=== PATIENT | female | born 1985 | race Caucasian/White ===

== ENCOUNTER → 2018-11-09 | Outpatient (CLI) | payer OTHER ==
--- NOTE | 2018-11-10 07:25 | US ---
EXAMINATION TYPE: US pelvic complete DATE OF EXAM: 11/09/2018 COMPARISON: NONE CLINICAL HISTORY: N93.0 Post coidal bleeding. TECHNIQUE: . Transabdominal sonographic images of the pelvis were acquired. Date of LMP: 10/14/2018 EXAM MEASUREMENTS: Uterus: 10.2 x 4.9 x 6.3 cm Endometrial Stripe: 1.0 cm Right Ovary: 2.7 x 1.9 x 1.5 cm Left Ovary: 1.6 x 1.5 x 1.0 cm 1. Uterus: Anteverted wnl 2. Endometrium: wnl 3. Right Ovary: wnl 4. Left Ovary: wnl 5. Bilateral Adnexa: wnl 6. Posterior cul-de-sac: Tiny amount of free fluid visualized Heterogeneous anteverted uterus is seen. Endometrium measures 10 mm which is of within normal limits for secretory phase of menstrual cycle. Tiny amount of free fluid in pelvic cul-de-sac is presumed ph ysiologic. Both ovaries are identified. No suspicious adnexal masses are seen. IMPRESSION: No suspicious finding is seen to account for patient's symptoms.
== END ==
LOC: RADUSWWP 16:10
PROVIDERS: ATTEND Obstetrics & Gynecology
DX: N93.0 Postcoital and contact bleeding (principal)
CPT/HCPCS: 76856

== ENCOUNTER 2020-05-30 06:00 | Inpatient (IN) | payer OTHER ==
--- NOTE | 2020-05-29 20:04 | P.HPOB ---
History of Present Illness H&P Date: 05/29/20 Chief Complaint: Induction of labor This is a 35 y.o. female, 5, para 3, with an estimated date of confinement of 06/02/2020, estimated gestational age of 39-4/7 weeks who presents for induction of labor. She admits to good movement and has irregular contractions. course has been uncomplicated. OB Hx: . History of 3 previous vaginal deliveries and 1 miscarriage. Sap Basis Consultant Hx: No hx of STDs Social Hx: . Works as RN. labs: GC/Chlamydia/Trich-neg Hepatitis B surface antigen-neg RPR-NR Rubella-immune Blood type-O+ Antibody screen-neg Hemoglobin-13.6 Random glucose-85 1 hr. GTT-119 GBS-neg Review of Systems Constitutional: Denies chills, Denies fever Eyes: denies blurred vision, denies pain Ears, nose, mouth and throat: Denies headache, Denies sore throat Cardiovascular: Denies chest pain, Denies shortness of breath Respiratory: Denies cough Gastrointestinal: Reports abdominal pain (occ ctxs) Genitourinary: Reports pelvic pain, Reports Integumentary: Denies pruritus, Denies rash Neurological: Denies numbness, Denies weakness Psychiatric: Denies anxiety, Denies depression Past Medical History Past Medical History: Asthma History of Any Multi-Drug Resistant Organisms: None Reported Past Surgical History: Breast Surgery Additional Past Surgical History / Comment(s): breast biopsy 2011. leep 2011. D&C 2011. wisdom teeth Past Anesthesia/Blood Transfusion Reactions: No Reported Reaction Past Psychological History: No Psychological Hx Reported Past Alcohol Use History: None Reported Past Drug Use History: None Reported - Past Family History Mother Family Medical History: Hypertension Medications and Allergies Home Medications Medication Instructions Recorded Confirmed Type Pnv,Calcium 72/Iron/Folic Acid 1 each PO DAILY 02/04/16 02/04/16 History [ Plus Tablet] Allergies Allergy/AdvReac Type Severity Reaction Status Date / Time Penicillins Allergy Intermediate Rash/Hives Verified 02/04/16 06:17 Exam Osteopathic Statement: *. No significant issues noted on an osteopathic structural exam other than those noted in the History and Physical/Consult. HEENT: Within normal limits Heart: regular rate and rhythm Lungs: clear to auscultation bilaterally Abdomen: Cervix: 2.5 cm/60%/-3 heart tones: 130'v by doppler Extremities: neg. Obed's Assessment and Plan (1) 39 weeks gestation of Status: Acute Code(s): Z3A.39 - 39 WEEKS GESTATION OF SNOMED Code(s): 99409832 Plan: Proceed with oxytocin induction of labor. Expectant management. Epidural anesthesia if desired.
[2020-05-30] MEDS ORDERED: LIDOCAINE 0.5% (PF) 5 MG/ML (50 ML SDV) SQ PRN (06:56)
[2020-05-30] MEDS ORDERED: TERBUTALINE 1 MG/ML VIAL SQ PRN (06:56)
[2020-05-30] MEDS ORDERED: CARBOPROST TROMETHAMINE 250 MCG/ML 1 ML AMP IM PRN (06:56)
[2020-05-30] MEDS ORDERED: LIDOCAINE 1% (10MG/ML) FOR IV START INTRADERMA PRN (06:56)
[2020-05-30] MEDS ORDERED: OXYTOCIN 30 UNITS/500 ML NS 30 UNIT in SALINE 1 500ML.BAG IV SCH (06:56)
[2020-05-30] MEDS ORDERED: OXYTOCIN 10 UNIT/ML 1 ML VIAL IM PRN (06:56)
[2020-05-30] MEDS ORDERED: METHYLERGONOVINE 0.2 MG/ML 1 ML AMP IM PRN (06:56)
[2020-05-30] MEDS: LACTATED RINGERS 1,000 ML IV SCH ×2 (07:00→12:30)
[2020-05-30 07:02] LABS: Basophils # (A) 0.1 k/uL (0-0.2); Basophils % (A) 1 %; Eosinophils # (A) 0.1 k/uL (0-0.7); Eosinophils % (A) 1 %; HCT 34.7 % (34.0-46.0); HGB 11.3 gm/dL (11.4-16.0); Hypochromasia Slight; Lymphocytes # (A) 1.9 k/uL (1.0-4.8); Lymphocytes % (A) 24 %; MCH 27.4 pg (25.0-35.0); MCHC 32.7 g/dL (31.0-37.0); MCV 83.9 fL (80.0-100.0); Mean Platelet Volume 9.5; Monocytes # (A) 0.4 k/uL (0-1.0); Monocytes % (A) 5 %; Neutrophils # (A) 5.4 k/uL (1.3-7.7); Neutrophils % (A) 67 %; Platelet Count 151 k/uL (150-450); RBC 4.14 m/uL (3.80-5.40)
[2020-05-30] MEDS ORDERED: SODIUM CHLORIDE 0.9% 100 ML BAG ONE (12:15)
[2020-05-30] MEDS ORDERED: ROPIVACAINE 5MG/ML 20ML VIAL ONE (12:15)
[2020-05-30] MEDS ORDERED: fentaNYL (PF) 50 MCG/ML 5 ML AMP ONE (12:15)
[2020-05-30] MEDS ORDERED: ROPIVACAINE 100 MG, fentaNYL (PF) 200 MCG in SODIUM CHLORIDE 0.9% 76 ML EPIDURAL ONE (12:45)
[2020-05-30] MEDS ORDERED: BENZOCAINE/MENTHOL SPRAY 1 GM/SPRAY AEROSOL TOPICAL PRN (14:17)
[2020-05-30] MEDS ORDERED: diphenhydrAMINE 50 MG/ML 1 ML VIAL IVP PRN ×2 (14:17)
[2020-05-30] MEDS ORDERED: LANOLIN CREAM 5 GM TUBE TOPICAL PRN (14:17)
[2020-05-30] MEDS ORDERED: diphenhydrAMINE 50 MG CAP PO PRN (14:17)
[2020-05-30] MEDS ORDERED: SIMETHICONE 80 MG CHEWABLE PO PRN (14:17)
[2020-05-30] MEDS ORDERED: IBUPROFEN 600 MG TAB PO PRN (14:17)
[2020-05-30] MEDS ORDERED: ZOLPIDEM 5 MG TAB PO PRN (14:17)
[2020-05-30] MEDS ORDERED: OXYTOCIN 20 UNITS/1000 ML NS 1,000 ML IV SCH (14:17)
[2020-05-30] MEDS ORDERED: HYDROCORTISONE 2.5% RECTAL CREAM 30 GM TUBE RECTAL PRN (14:17)
[2020-05-30] MEDS ORDERED: diphenhydrAMINE 25 MG CAP PO PRN (14:17)
[2020-05-30] MEDS ORDERED: ACETAMINOPHEN TAB 325 MG TAB PO PRN (14:17)
--- NOTE | 2020-05-30 19:36 | P.PROBDLV ---
Vaginal Delivery Note - . Vaginal Delivery Note: The patient progressed to complete dilation after oxytocin induction of labor and artificial rupture membranes with clear fluid noted. She did receive epidural anesthesia. Shortly after epidural, she was checked and found to be rim. She began pushing. Infant's head came to a crown. With one further push, the 's head delivered across the perineum followed by the anterior shoulder. Nuchal cord times one was reduced around the body with delivery. Infant was placed on mother's abdomen and cord was clamped and cut. A viable female infant was noted with scores of 9 at 1 minute and 9 at 5 minutes and infant weight of 7 lbs. 12 oz. Placenta delivered shortly thereafter, intact, with a three-vessel cord. Uterus contracted well after oxytocin was given and uterine massage was carried out. Inspection of the perineum revealed no perineal lacerations. Estimated blood loss is approximately 100 mL's. Both mother and are in stable condition.
[2020-05-30] MEDS: SENNOSIDES-DOCUSATE SODIUM 1 EACH TAB PO SCH (19:42)
[2020-05-31 06:37] LABS: Basophils # (A) 0.1 k/uL (0-0.2); Basophils % (A) 1 %; Eosinophils # (A) 0.1 k/uL (0-0.7); Eosinophils % (A) 1 %; HGB 9.9 gm/dL (11.4-16.0); Hypochromasia Slight; Lymphocytes # (A) 2.2 k/uL (1.0-4.8); Lymphocytes % (A) 26 %; MCH 26.9 pg (25.0-35.0); MCV 84.2 fL (80.0-100.0); Mean Platelet Volume 9.6; Monocytes # (A) 0.6 k/uL (0-1.0); Monocytes % (A) 8 %; Neutrophils # (A) 5.4 k/uL (1.3-7.7); Neutrophils % (A) 63 %; Platelet Count 147 k/uL (150-450); RBC 3.68 m/uL (3.80-5.40); RDW 15.9 % (11.5-15.5); WBC 8.5 k/uL (3.8-10.6)
--- NOTE | 2020-05-31 08:49 | P.DS ---
Providers Date of admission: 05/30/20 06:12 Expected date of discharge: 05/31/20 Attending physician: Iqra Guo Primary care physician: Stated None - Discharge Diagnosis(es) (1) 39 weeks gestation of Current Visit: No Status: Acute Hospital Course: This is a 35-year-old female 5 para 3 at 39-4/7 weeks who presented for induction of labor. She underwent oxytocin induction of labor and delivered vaginally a viable female with scores of 9 at 1 minute and 9 at 5 minutes and weight of 7 lbs. 12 oz. on 05/30/2020. course has been uncomplicated. Lochia is decreasing. She is bottle feeding. Pain is well-controlled. Vital signs are stable. Abdomen is soft with fundus firm and nontender. Extremities show negative Homans. Impression is status post vaginal delivery day #1. Plan is to discharge home today. Routine instructions are given. She declines the need for any pain medication. She is advised follow-up in the office in 6 weeks for check. She is advised call the office if she has any further questions or concerns prior to her appointment time. Procedures: Oxytocin induction of labor Spontaneous vaginal delivery of a viable female on 05/30/2020. Patient Condition at Discharge: Stable Plan - Discharge Summary New Discharge Prescriptions: Continue Pnv,Calcium 72/Iron/Folic Acid [ Plus Tablet] 1 each PO DAILY Ferrous Sulfate [Slow Fe] 142 mg PO DAILY Discharge Medication List Pnv,Calcium 72/Iron/Folic Acid [ Plus Tablet] 1 each PO DAILY 02/04/16 [History] Ferrous Sulfate [Slow Fe] 142 mg PO DAILY 05/30/20 [History] Activity/Diet/Wound Care/Special Instructions: Instructions 1. Do not begin any exercise program for 3 weeks. 2. Do not resume sexual relations for 3 weeks or longer if uncomfortable. 3. You may take tub baths or showers at any time. 4. You may use tampons if desired after 3 weeks. 5. Keep the area of episiotomy (stitches) clean and dry. 6. If you are not nursing, wear a good fitting, supportive bra during the day and limit fluid intake for at least 1 week to prevent breast engorgement. 7. Call the office, [phone], within the next week to make appointment for your 6 week checkup if it has not already been made. 8. Report any of the following occurrences to the doctor promptly: a. Heavy, excessive bleeding b. Chills, fever c. Burning or frequency of urination d. Pain or redness and breasts if nursing e. Increasing pain or swelling in episiotomy (stitches). In addition to the above instructions, the following additional should be followed: 1. No heavy lifting or straining (exercising) until after 6 week checkup. 2. Keep abdominal incision clean and dry: You may wear a dressing if more comfortable. 3. Make office appointment for 10 days after going home or as instructed by her doctor. Discharge Disposition: HOME SELF-CARE
[2020-05-31] MEDS ORDERED: PRENATAL VIT-IRON-FOLIC ACID 1 EACH CAP PO SCH (09:00)
[2020-05-31] MEDS ORDERED: FERROUS SULFATE 325 MG TAB PO SCH (09:00)
[2020-05-31] MEDS: SENNOSIDES-DOCUSATE SODIUM 1 EACH TAB PO SCH (09:56)
[2020-05-31 17:57] VITALS: BP 125/75; PULSE 90; RESP 20; TEMP 97.8
== END 2020-05-31 16:55 | disposition home or self-care (01) | DRG 807 ==
LOC: 4FBP 06:12
PROVIDERS: ADMIT Obstetrics & Gynecology; ATTEND Obstetrics & Gynecology
PROC: 3E0R3BZ Introduction of Anesthetic Agent into Spinal Canal, Percutaneous Approach (ICD-10-PCS; principal; 2020-05-30)
PROC: 10E0XZZ Delivery of Products of Conception, External Approach (ICD-10-PCS; principal; 2020-05-30)
PROC: 00HU33Z Insertion of Infusion Device into Spinal Canal, Percutaneous Approach (ICD-10-PCS; principal; 2020-05-30)
DX: O69.81X0 Labor and delivery complicated by cord around neck, without compression, not applicable or unspecified (principal); Z37.0 Single live birth; O99.52 Diseases of the respiratory system complicating childbirth; J45.909 Unspecified asthma, uncomplicated; Z3A.39 39 weeks gestation of pregnancy; Z82.49 Family history of ischemic heart disease and other diseases of the circulatory system; Z88.0 Allergy status to penicillin
CPT/HCPCS: 85025; 86850; 86900; 86901